=== PATIENT | female | born 1960 | race Caucasian/White ===

== ENCOUNTER → 2016-07-22 | Outpatient (CLI) | payer OTHER ==
[~2016-07-22] MED LIST: ASPI81TA85 PO; BENI20TA5 PO; CALC1TAB56 PO; CINN1CAP6 PO; CRAN1260 PO; FLAX10002 PO; MULTTAB PO; OMEP40CA2 PO; SYNT100T PO; TRIPCAP6 PO; VITA-121 PO; [UNRECOGNIZED DRUG - CODE] PO
--- NOTE | 2016-07-22 14:25 | REPMRS ---
Patient History The patient states she had a clinical breast exam in 05/29 No known family history of cancer. Digital Woman Screen Mammo: July 22, 2016 - Exam #: [id number] Bilateral CC and MLO view(s) were taken. Technologist: Brittanie Hatch, Technologist Prior study comparison: July 20, 2015, digital woman screen mammo performed at [facility] to [facility]. July 19, 2014, digital woman screen mammo performed at [facility] to [facility]. May 06, 2013, digital woman screen mammo performed at [facility] to [facility]. FINDINGS: The breast tissue is almost entirely fat. There has been no change in the appearance of the mammogram from the prior studies. There is no interval development of dominant mass, architectural distortion, or clustered microcalcification typical of malignancy. ASSESSMENT: BI-RADS/ACR category 1 mammogram. Negative. Recommendation Routine screening mammogram of both breasts in 1 year (for women over age 40). This mammogram was interpreted with the aid of an FDA-approved computer-aided dectection system. Electronically Signed By: Jam Johnston MD 07/22/16 [id number]
== END ==
LOC: M WHC 12:51
PROVIDERS: ATTEND Obstetrics & Gynecology
DX: Z12.31 Encounter for screening mammogram for malignant neoplasm of breast (principal)

== ENCOUNTER → 2016-12-02 | Outpatient (CLI) | payer OTHER ==
--- NOTE | 2016-12-02 14:28 | REP ---
Clinical: Pulmonary nodule. Comparison: 11/28/2015. Findings: There is a 4 mm noncalcified nodule in the periphery of the right middle lobe (image 57) which, if corresponding to the previously identified density currently appears more prominent. This may represent a chronic granuloma as very subtle calcification cannot be excluded. The remainder of lung pham are well-aerated and clear. No further consolidation, significant nodule or mass lesion appreciated. Tracheobronchial tree is patent. No effusion or pneumothorax. Mediastinum including thoracic aorta and heart/pericardium appear normal. No significant adenopathy identified. Surrounding musculoskeletal structures are intact. Evidence for prior cholecystectomy. Impression: 4 mm density in the periphery of the right middle lobe. Consider follow-up examination in 3-6 months. It is difficult to exclude forming calcification suggesting a chronic benign finding. Signed by Murray Devlin MD 12/02/2016 02:18 P
== END ==
LOC: M RAD 13:42
PROVIDERS: ATTEND Internal Medicine Pulmonary Disease
DX: R91.1 Solitary pulmonary nodule (principal)

== ENCOUNTER → 2016-12-17 | Outpatient (CLI) | payer OTHER ==
[~2016-12-17] MED LIST changes: +METHACHOLINE KIT (J7674) INH ONE
--- NOTE | 2016-12-17 14:03 | PFTRPT ---
Tech: Tacho FINK RRT Age: 56 Sex: Female Race: Height: 60.00 Inches Weight: 201.00 Lbs BSA: 1.87 Diagnosis: R06.00 METHACHOLINE CHALLENGE REPORT: ORDERING PROVIDER: Isaac Mehta DO DATE OF SERVICE: 12/17/16 INTERPRETATION: The study was of excellent technical quality. Under protocol, methacholine was administered. Even after a maximal dose of 25 mg (188.875 CDUs) of methacholine , no provocation dose was ever achieved. IMPRESSION: Negative methacholine challenge study. MTDD
== END ==
LOC: M CARPUL 13:01
PROVIDERS: ATTEND Internal Medicine Pulmonary Disease
DX: R06.00 Dyspnea, unspecified (principal)

== ENCOUNTER → 2017-06-28 | Outpatient (REF) | payer OTHER ==
[~2017-06-28] MED LIST changes: +BENI1TAB PO; -BENI20TA5 PO; -METHACHOLINE KIT (J7674) INH ONE
== END ==
LOC: M LAB REF 10:48
PROVIDERS: ATTEND Physician Assistant
DX: R30.0 Dysuria (principal)

== ENCOUNTER → 2017-08-07 | Outpatient (CLI) | payer OTHER | LOC: M WHC 14:23 | DX: Z12.31 Encounter for screening mammogram for malignant neoplasm of breast (principal); E65 Localized adiposity | CPT/HCPCS: 77067 ==

== ENCOUNTER → 2017-09-07 | Outpatient (REF) | payer OTHER | LOC: M LAB REF 09:45 | DX: J02.9 Acute pharyngitis, unspecified (principal) | CPT/HCPCS: 87070 ==

== ENCOUNTER → 2018-07-21 | Outpatient (CLI) | payer OTHER ==
[~2018-07-21] MED LIST changes: -BENI1TAB PO; +BENI1TAB3 PO
--- NOTE | 2018-07-21 15:27 | REP ---
LEFT LOWER EXTREMITY DUPLEX VEINS: HISTORY: Swelling. There are no filling defects in the deep venous system. The deep venous system is patent. IMPRESSION: There is no deep venous thrombosis. Electronically Signed by Elmer Hunter MD 07/21/2018 03:34 P
== END ==
LOC: M RAD 14:32
PROVIDERS: ATTEND Physician Assistant
DX: R22.42 Localized swelling, mass and lump, left lower limb (principal)